=== PATIENT | male | born 1965 | race Caucasian/White ===

== ENCOUNTER 2016-09-05 10:40 | Inpatient (IN) | payer MEDICARE ==
[~2016-09-05] VITALS: Ht 175.3 cm; Wt 116.0 kg
[2016-09-05] MEDS ORDERED: CEFTRIAXONE PMX 1GM/50ML 50 ML IVPB ONE (11:30)
[2016-09-05] MEDS ORDERED: AZITHROMYCIN 500 MG in SODIUM CHLORIDE 0.9% 250 ML IVPB ONE (11:30)
[2016-09-05] MEDS ORDERED: ACETAMINOPHEN 325 MG TABLET PO ONE (11:30)
[2016-09-05] MEDS ORDERED: SODIUM CHLORIDE FLUSH 10ML SYR IVF ONE (11:30)
[2016-09-05] MEDS: SODIUM CHLORIDE 0.9% 1,000ML IVBOLUS ONE ×2 (11:35→12:10)
[2016-09-05 12:22] LABS: HEMOGLOBIN 13.5 g/dL (13.7-18.0)
[2016-09-05 12:37] LABS: ASPARTATE AMINO TRANSFERASE 119 U/L (15-37); BLOOD UREA NITROGEN 9 mg/dL (7-18)
[2016-09-05 12:43] LABS: IS PT STATUS REG ER OR PRE ER? YES
[2016-09-05 12:48] LABS: RAPID INFLUENZA A Negative (Negative)
[2016-09-05 12:49] LABS: RAPID INFLUENZA B POSITIVE (Negative)
[2016-09-05] MEDS ORDERED: CEFTRIAXONE PMX 1GM/50ML 50 ML ONE (12:51)
[2016-09-05] MEDS ORDERED: ACETAMINOPHEN 325 MG TABLET ONE (12:51)
[2016-09-05] MEDS ORDERED: CLON0.25 PO (13:06)
[2016-09-05] MEDS ORDERED: GLIP10TA13 PO (13:06)
[2016-09-05] MEDS ORDERED: OSELTAMIVIR 75 MG CAPSULE PO ONE (13:30)
[2016-09-05] MEDS ORDERED: SODIUM CHLORIDE FLUSH 10ML SYR IVF PRN (14:00)
[2016-09-05] MEDS ORDERED: POLYETHYLENE GLYCOL 17 GM PACKET PO PRN (15:00)
[2016-09-05] MEDS ORDERED: HYDROcodone/APAP 5/325 TABLET PO PRN (15:00)
[2016-09-05] MEDS ORDERED: ONDANSETRON 2MG/ML, 2ML IVP PRN (15:00)
[2016-09-05] MEDS ORDERED: ENOXAPARIN 40 MG/0.4 ML SQ SCH (15:00)
[2016-09-05] MEDS ORDERED: ENALAPRILAT 1.25 MG/ML, 2ML IVPush PRN (15:00)
[2016-09-05] MEDS ORDERED: DOCUSATE 100 MG CAPSULE PO PRN (15:00)
[2016-09-05] MEDS ORDERED: NICOTINE 14MG/24 HR PATCH.TD24 ONE (16:45)
[2016-09-05] MEDS ORDERED: ENOXAPARIN 40 MG/0.4 ML ONE (16:45)
[2016-09-05] MEDS: SODIUM CHLORIDE 0.9% 1,000 ML IV SCH (16:48)
[2016-09-05] MEDS: NICOTINE 14MG/24 HR PATCH.TD24 TD SCH ×2 (16:49→16:54)
[2016-09-05 18:06] VITALS: BP 123/66
[2016-09-05] MEDS: INSULIN ASPART 100 UNITS/ML, PEN SQ-INSULIN SCH ×2 (18:13→21:57)
[2016-09-05 18:30] VITALS: BP 123/66
[2016-09-05 18:33] LABS: IS PT STATUS REG ER OR PRE ER? NO
[2016-09-05] MEDS: LORazepam 2 MG/ML, 1ML IVPush PRN (20:29)
[2016-09-05] MEDS: OSELTAMIVIR 75 MG CAPSULE PO SCH (20:29)
[2016-09-05] MEDS: ACETAMINOPHEN 325 MG TABLET PO PRN (20:29)
[2016-09-05] MEDS: GUAIFENESIN/DM 200-20MG, 10ML UDC PO PRN (21:40)
[2016-09-06] MEDS: SODIUM CHLORIDE 0.9% 1,000 ML IV SCH ×2 (00:16→08:03)
[2016-09-06 00:55] LABS: IS PT STATUS REG ER OR PRE ER? NO
[2016-09-06 01:10] VITALS: BP 126/75
[2016-09-06] MEDS: GUAIFENESIN/DM 200-20MG, 10ML UDC PO PRN (03:53)
[2016-09-06] MEDS: ACETAMINOPHEN 325 MG TABLET PO PRN ×3 (03:56→16:35)
[2016-09-06] MEDS: LORazepam 2 MG/ML, 1ML IVPush PRN (04:00)
[2016-09-06 06:45] LABS: ASPARTATE AMINO TRANSFERASE 166 U/L (15-37); BLOOD UREA NITROGEN 10 mg/dL (7-18)
[2016-09-06 06:46] LABS: HEMOGLOBIN 12.5 g/dL (13.7-18.0)
[2016-09-06] MEDS: INSULIN ASPART 100 UNITS/ML, PEN SQ-INSULIN SCH ×4 (07:00→20:00)
[2016-09-06 07:30] LABS: DIFF TOTAL CELLS COUNTED 100 CELL DIFF
[2016-09-06 07:34] VITALS: BP 119/77
[2016-09-06 07:39] LABS: VERIFY COUNTS? YES
[2016-09-06] MEDS: OSELTAMIVIR 75 MG CAPSULE PO SCH ×2 (08:03→19:59)
[2016-09-06] MEDS ORDERED: AZITHROMYCIN 500 MG in SODIUM CHLORIDE 0.9% 250 ML IV SCH (10:30)
[2016-09-06] MEDS: CEFTRIAXONE PMX 2GM/50ML 50 ML IV SCH (11:03)
[2016-09-06] MEDS: NICOTINE 14MG/24 HR PATCH.TD24 TD SCH (11:43)
[2016-09-06 12:58] VITALS: BP 127/81
[2016-09-06] MEDS ORDERED: GUAIFENESIN/DM 200-20MG, 10ML UDC PO PRN (16:00)
[2016-09-06] MEDS ORDERED: ENOXAPARIN 40 MG/0.4 ML SQ SCH (17:00)
[2016-09-06 19:34] VITALS: BP 118/78
[2016-09-07 01:18] VITALS: BP 120/69
[2016-09-07] MEDS: ACETAMINOPHEN 325 MG TABLET PO PRN (03:54)
[2016-09-07] MEDS: INSULIN ASPART 100 UNITS/ML, PEN SQ-INSULIN SCH (07:00)
[2016-09-07 07:11] VITALS: BP 105/64
[2016-09-07] MEDS: OSELTAMIVIR 75 MG CAPSULE PO SCH (08:10)
[2016-09-07] MEDS ORDERED: POLYETHYLENE GLYCOL 17 GM PACKET PO ONE (09:00)
[2016-09-07] MEDS ORDERED: OSEL75CA PO (09:04)
[2016-09-07] MEDS ORDERED: CEFD300C2 PO (09:04)
[2016-09-07] MEDS ORDERED: PROM5SYR PO (09:04)
[2016-09-07] MEDS ORDERED: GLIP10TA13 PO (09:04)
[2016-09-07] MEDS ORDERED: CLON0.25 PO (09:07)
[2016-09-07] MEDS: CEFTRIAXONE PMX 2GM/50ML 50 ML IV SCH (10:08)
== END 2016-09-07 11:30 | disposition home or self-care (01) | DRG 194 ==
LOC: ED 13:34 → EDIP 13:35 → ED 13:57 → EDIP 14:38 → UNDOADMIN 14:38 → 3NE 17:45
PROVIDERS: ADMIT Family Medicine; ATTEND Family Medicine
DX: J10.1 Influenza due to other identified influenza virus with other respiratory manifestations (principal); E87.1 Hypo-osmolality and hyponatremia; E11.9 Type 2 diabetes mellitus without complications; F17.210 Nicotine dependence, cigarettes, uncomplicated; F41.9 Anxiety disorder, unspecified; Z91.14 Patient's other noncompliance with medication regimen; Z88.0 Allergy status to penicillin; Z88.1 Allergy status to other antibiotic agents
CPT/HCPCS: 36415; 71010; 80053; 82962; 83605; 83880; 84145; 84484; 85025; 87040; 87400; 93005; 96361; 96365; 96372; J0456; J0696; J1650; J1815; J2060; J7030; J7050